=== PATIENT | male | born 1985 | race Caucasian/White ===

== ENCOUNTER 2020-04-15 15:01 | Emergency (ER) | payer OTHER ==
[~2020-04-15] VITALS: Ht 175.3 cm; Wt 85.9 kg
[2020-04-15 15:12] VITALS: Ht 175.3 cm; Wt 85.9 kg
[2020-04-15] MEDS ORDERED: ATARAX 25 MG TA25 MG (15:13)
[2020-04-15 15:52] LABS: BASOPHILS 0.3 % (0-2); EOSINOPHILS 1.8 % (0-7); HEMATOCRIT 47.4 % (42.0-54.0); HEMOGLOBIN 16.5 g/dL (13.5-17.5); IMMATURE GRANULOCYTES 0.2 % (0-5); LYMPHOCYTES 27.5 % (15-50); MCH 30.8 pg (26.0-34.0); MCHC 34.8 g/dL (31.0-37.0); MCV 88.6 fL (80.0-100.0); MEAN PLATELET VOLUME 10.2 fL (7.4-10.4); MONOCYTES 5.9 % (2-11); NEUTROPHILS 64.3 % (40-80); PLATELET COUNT 392 10x3/uL (130-400); RBC 5.35 10x6/uL (4.20-6.10); RDW 13.3 % (11.5-14.5); WBC 9.1 10x3/uL (4.8-10.8)
[2020-04-15 16:00] LABS: CALC OSMOLALITY 279 mosm/kg (275-300); CALCIUM 9.8 mg/dL (8.5-10.1); CARBON DIOXIDE 25.5 mmol/L (21.0-32.0); CHLORIDE - SERUM 103 mmol/L (98-107); CREATININE - SERUM 1.2 mg/dL (0.6-1.3); GLUCOSE 101 mg/dL (74-106); POTASSIUM - SERUM 3.6 mmol/L (3.5-5.1); SODIUM 140 mmol/L (136-145); UREA NITROGEN 14 mg/dL (7-18); eGFR NON AFRICAN AMERICAN 73 mL/min (90-120)
[2020-04-15 16:10] LABS: APTT 30.4 SECONDS (22.8-39.4); INR 0.95 (0.85-1.17); PROTIME 12.7 SECONDS (11.6-15.0)
[2020-04-15 16:18] LABS: ALBUMIN 4.7 g/dL (3.4-5.0); ALKALINE PHOSPHATASE 43 U/L (30-120); ALT (SGPT) 33 U/L (10-68); BILIRUBIN - TOTAL 0.29 mg/dL (0.2-1.3); CREATINE KINASE 147 UL (21-232); LIPASE 115 U/L (73-393); MAGNESIUM - SERUM 2.2 mg/dL (1.8-2.4)
[2020-04-15 16:21] LABS: TROPONIN-I < 0.017 ng/mL (0.000-0.060)
[2020-04-15 17:35] VITALS: BP 123/83
[2020-04-15] MEDS ORDERED: CYMBALTA60 MG PO (17:37)
[2020-04-15] MEDS ORDERED: ATIVAN0.5 MG PO (17:37)
== END 2020-04-15 17:35 | disposition home or self-care (01) ==
LOC: D.ER 15:01
PROVIDERS: Family Medicine
DX: F43.10 Post-traumatic stress disorder, unspecified (principal); F41.8 Other specified anxiety disorders; R07.89 Other chest pain